=== PATIENT | female | born 1960 | race Caucasian/White ===

== ENCOUNTER 2017-07-18 10:36 | Day surgery (SDC) | payer OTHER ==
[2017-07-17 09:58] VITALS: BMI 33.9
[~2017-07-18 10:36] MED LIST: LACTATED RINGERS 1,000 ML IV SCH
[2017-07-18] MEDS ORDERED: NA PHOS,M-B/NA PHOS,DI-BA 133 ML ENEMA RECTAL ONE ×2 (11:46→11:50)
[2017-07-18 12:11] VITALS: TEMP 98.6
[2017-07-18] MEDS ORDERED: MIDAZOLAM 2 MG/2 ML VIAL ONE (12:38)
[2017-07-18] MEDS ORDERED: PROPOFOL 10 MG/ML 20 ML VIAL IV ONE (12:38)
[2017-07-18] MEDS ORDERED: LIDOCAINE 1% INJ 10MG/ML (20 ML MDV) ONE (12:38)
--- NOTE | 2017-07-18 13:31 | P.PCN ---
Date of Procedure: 07/18/17 Procedure(s) Performed: Procedures: Esophagoenteroscopy and total colonoscopy. Preoperative diagnosis: Epigastric pain and anemia. Postoperative diagnosis: 1. S/P gastric bypass surgery with no obvious abnormalities in the esophagus or small intestine. 2. Less than ideal preparation of the colon, otherwise, no obvious pathology or bleeding. Preparation: HalfLytely prep. Sedation: Was provided by anesthesia. Brief clinical history: The patient is a 57-year-old female who was evaluated in the office earlier this month for anemia and epigastric pain. She has history of polyps and her last colonoscopy was in 2011. She had gastric bypass surgery in 1997 and 1999 and had prior endometrial ablation and has not had menstrual blood losses for several years. This evaluation is scheduled to assess her symptoms and investigate the anemia. Procedure: With the patient on her left lateral decubitus position and after informed consent and adequate sedation, I passed the Olympus GIF 160 video upper endoscope through the cricopharyngeus down the esophagus. The esophagus appeared healthy. The patient had evidence of prior gastric bypass surgery. The endoscope was then passed into the small intestine for a good distance. The small intestine appeared healthy as well. I obtained biopsies from the small intestine and the esophagus before the endoscope was withdrawn then I proceeded with the colonoscopy. Perianal area did not show any fissures or fistulas. There were no masses felt on digital rectal examination. The Olympus CFQ 160L video colonoscope was then inserted in the rectum in the usual fashion and advanced to the cecum. Unfortunately, the preparation was less than ideal and there was thick fecal secretions and fecal debris in all areas examined and this did not wash off totally as I cleansed the colon while withdrawing the endoscope. No obvious polyps or tumors were seen. The mucosa appeared healthy. I did not appreciate obvious diverticular disease in light of her less than ideal preparation. I retroflexed the endoscope in the rectum before the endoscope was withdrawn. The patient tolerated the procedure well. Plan: The patient was reassured. It is likely that her anemia is related to her gastric bypass surgery. I did not see any findings to account for epigastric pain. With her history of polyps and having had less than ideal preparation today, I recommended repeat exam, possibly after two-day preparation , in around 3 years. She will follow-up in the office next month and we would keep you updated on her progress. She will follow-up with you as planned.
[2017-07-18 13:37] VITALS: RESP 18
[2017-07-18 13:44] VITALS: PULSE 70
[2017-07-18 14:07] VITALS: BP 111/78
== END 2017-07-18 14:11 | disposition home or self-care (01) ==
LOC: ORWHC2ENDO 10:36
DX: R10.13 Epigastric pain (principal); D64.9 Anemia, unspecified; Z86.010 Personal history of colon polyps; Z98.84 Bariatric surgery status; F31.9 Bipolar disorder, unspecified; F41.9 Anxiety disorder, unspecified; Z79.899 Other long term (current) drug therapy
CPT/HCPCS: 88305; 45378; 43239; J2250; J2001; J2704

== ENCOUNTER 2018-01-01 09:50 | Emergency (ER) | payer OTHER ==
[2018-01-01] MEDS ORDERED: EPINEPHrine 10 ML SYRINGE (0.1 MG/ML) ONE (09:55)
--- NOTE | 2018-01-01 10:35 | ED ---
CPR HPI - General Stated Complaint: Cardiac Arrest Time Seen by Provider: 01/01/18 09:50 Source: RN notes reviewed - History of Present Illness Initial Comments: This is a 57-year-old female with a reported history of COPD and gastric bypass in the past who was apparently experiencing shortness of breath this morning. Her roommate called EMS upon their arrival they found her lying on the floor complaining of dyspnea and not wanting to be touched by them. She did agree to be transported. She was dyspneic the lites chest pain no other history available no other information available. After she was transferred to the ambulance stretcher she went into a cardiac arrest. ACLS protocol was initiated including oral intubation and CPR ultimately with a Carroll device. Patient was transported by EMS emergency department. CPR progress patient was asystolic. On arrival ACLS efforts were still continued. MD Complaint: stopped breathing, collapsed during activity - Related Data Home Medications Medication Instructions Recorded Confirmed ARIPiprazole [Abilify] 10 mg PO DAILY 07/10/17 01/01/18 Zolpidem Tartrate [Ambien] 10 mg PO HS PRN 07/10/17 01/01/18 Niacin [Niacin ER] 1,000 mg PO DAILY 01/01/18 01/01/18 Venlafaxine HCl [Effexor XR] 225 mg PO DAILY 01/01/18 01/01/18 clonazePAM [KlonoPIN] 0.5 mg PO BID 01/01/18 01/01/18 traZODone HCL [Desyrel] 100 mg PO HS PRN 01/01/18 01/01/18 Allergies Allergy/AdvReac Type Severity Reaction Status Date / Time No Known Allergies Allergy Verified 01/01/18 09:58 Review of Systems ROS Statement: Those systems with pertinent positive or pertinent negative responses have been documented in the HPI. Limitations: ROS unobtainable due to patients medical condition Past Medical History Past Medical History: No Reported History History of Any Multi-Drug Resistant Organisms: None Reported Past Surgical History: Bowel Resection, Section, Cholecystectomy, Uterine Ablation Additional Past Surgical History / Comment(s): BOWEL RESECTION X 2. COLONOSCOPY. POLYPECTOMY. EGD Past Anesthesia/Blood Transfusion Reactions: Postoperative Nausea & Vomiting ( PONV) Smoking Status: Former smoker - Past Family History Father Family Medical History: Deep Vein Thrombosis (DVT) Additional Family Medical History / Comment(s): DVT RT LEG General Exam - General Exam Comments Initial Comments: This is a well-developed well-nourished unresponsive female with ACLS protocol in progress. Limitations: altered mental status General appearance: other (Unresponsive) Head exam: Present: atraumatic, normal inspection Eye exam: Present: other (Pupils are fixed equal approximately 6 mm unreactive to light) ENT exam: Present: other (Oral tracheal tube in place) Neck exam: Present: normal inspection. Absent: tenderness, meningismus, lymphadenopathy Respiratory exam: Present: other (Good breath sounds bilaterally with Ambu bag breathing.) Cardiovascular Exam: Present: other (No spontaneous heart sounds) GI/Abdominal exam: Present: soft. Absent: bruit, pulsatile mass, hernia Rectal exam: Present: normal inspection External exam: Present: normal external exam Extremities exam: Present: normal inspection Back exam: Present: normal inspection Neurological exam: Present: other (Unresponsive) Psychiatric exam: Present: other (Unable to evaluate) Skin exam: Present: pallor Course - Reevaluation(s) Reevaluation #1: 01/01/18 10:32 A [place] protocol was continued until it was determined to be futile patient was pronounced at 10:05 AM. Reevaluation #2: 01/01/18 10:32 I was able to review my chart was available in our computer system it was for a EGD and total colonoscopy done 07/18/17 Reevaluation #3: 01/01/18 10:32 At this time no family is available is unknown as patient is physician I did discuss the case with the medical and scientific illustrator's office. Medical Decision Making - Medical Decision Making The patient was pronounced and will be placed in the morgue at this time until further information to be obtained. Critical Care Time Critical Care Time: Yes Critical Care Time: 31 minutes of critical care time which includes monitoring the EMS run and discussed with paramedics. Trying to obtain history physical exam and continue CPR efforts. This includes confirming that the Carroll device was in proper position and the endotracheal tube was also on proper position. The patient was determined to be apneic and pulseless. Disposition Clinical Impression: Sudden cardiac , Dyspnea, Asystole Disposition: Referrals: Nonstaff,Physician [Primary Care Provider] - 1-2 days Preliminary Cause of : Sudden cardiac , asystole
== END 2018-01-01 11:13 | disposition expired ==
LOC: EC 09:50
DX: I46.9 Cardiac arrest, cause unspecified (principal); R41.82 Altered mental status, unspecified; F31.9 Bipolar disorder, unspecified; F41.9 Anxiety disorder, unspecified; Z87.891 Personal history of nicotine dependence; Z79.899 Other long term (current) drug therapy
CPT/HCPCS: 31500; 92950; 99285